=== PATIENT | male | born 1990 | race African-American/Black ===

== ENCOUNTER 2023-02-11 13:02 | Outpatient (CLI) | payer OTHER | END 2023-02-11 13:03 | disposition home or self-care (01) | LOC: BICMRI 13:02 | PROVIDERS: ATTEND Orthopaedic Surgery | DX: M25.551 Pain in right hip (principal); S73.191A Other sprain of right hip, initial encounter ==

== ENCOUNTER 2024-04-20 13:52 | Outpatient (CLI) | payer OTHER | END 2024-04-20 13:53 | disposition home or self-care (01) | LOC: MRI 13:52 | PROVIDERS: ATTEND Orthopaedic Surgery | DX: M23.92 Unspecified internal derangement of left knee (principal); M71.22 Synovial cyst of popliteal space [Baker], left knee; M25.462 Effusion, left knee; M23.612 Other spontaneous disruption of anterior cruciate ligament of left knee ==